=== PATIENT | female | born 1965 | race Caucasian/White ===

== ENCOUNTER 2023-10-19 12:37 | Emergency (ER) | payer OTHER, SELFPAY ==
[2023-10-19 12:47] VITALS: BP 137/78; PULSE 73; RESP 16; TEMP 36.6; O2SAT 97; BMI 25.8
--- NOTE | 2023-10-19 12:56 | DI.RAD.S_ITS ---
PROCEDURE: XR ANKLE RT MIN 3V INDICATIONS: fall/pain/injury TECHNIQUE: 3 views of the ankle were acquired. COMPARISON: None. FINDINGS: Bones: No fractures or dislocations. Ankle mortise is normally aligned. No suspicious bony lesions. Mild plantar calcaneal enthesophyte. Soft tissues: No tibiotalar joint effusion. Achilles tendon appears normal. IMPRESSION: No acute osseous abnormality. If pain persists with conservative management, consider repeat x-ray in 10-14 days or cross-sectional imaging. Dictated by: Gus Dominguez M.D. on 10/19/2023 at 13:45 Approved by: Gus Dominguez M.D. on 10/19/2023 at 13:46
--- NOTE | 2023-10-19 12:56 | DI.RAD.S_ITS ---
PROCEDURE: XR KNEE LT 3V INDICATIONS: fall/pain/injury TECHNIQUE: 3 views of the knee were acquired. COMPARISON: None. FINDINGS: Bones: No fractures or dislocations. No suspicious bony lesions. Soft tissues: Small joint effusion. No suspicious soft tissue calcifications. IMPRESSION: No acute osseous abnormality. Small knee joint effusion. If pain persists with conservative management, consider repeat x-ray in 10-14 days or cross-sectional imaging. Dictated by: Gus Dominguez M.D. on 10/19/2023 at 13:46 Approved by: Gus Dominguez M.D. on 10/19/2023 at 13:47
--- NOTE | 2023-10-19 12:56 | DI.RAD.S_ITS ---
PROCEDURE: XR KNEE RT 3V INDICATIONS: fall/pain/injury TECHNIQUE: 3 views of the knee were acquired. COMPARISON: None. FINDINGS: Bones: No fractures or dislocations. No suspicious bony lesions. Soft tissues: No joint effusion. No suspicious soft tissue calcifications. IMPRESSION: No acute osseous abnormality. If pain persists with conservative management, consider repeat x-ray in 10-14 days or cross-sectional imaging. Dictated by: Gus Dominguez M.D. on 10/19/2023 at 13:47 Approved by: Gus Dominguez M.D. on 10/19/2023 at 13:47
--- NOTE | 2023-10-19 12:59 | DI.RAD.S_ITS ---
PROCEDURE: XR HIP W PEL IF DONE LT 2V INDICATIONS: fall/pain TECHNIQUE: AP pelvis with lateral view(s) of the left hip(s). COMPARISON: None. FINDINGS: Bones: No fractures or dislocations. Pelvic ring appears intact. No suspicious bony lesions. Degenerative changes of the visualized lower lumbar spine and pubic symphysis. Soft tissues: The visualized bowel gas pattern is normal. No suspicious soft tissue calcifications. IMPRESSION: No acute bony abnormality. Dictated by: Gus Dominguez M.D. on 10/19/2023 at 13:47 Approved by: Gus Dominguez M.D. on 10/19/2023 at 13:48
--- NOTE | 2023-10-19 14:33 | ED_ITS ---
HPI - Fall General Chief Complaint: Fall Stated Complaint: Fell down stairs, knee injuries Time Seen by Provider: 10/19/23 14:33 Source: patient, RN notes reviewed and old records reviewed Mode of arrival: Wheelchair Limitations: no limitations History of Present Illness HPI Narrative: 58-year-old female history of hypertension and hypothyroid, no daily anticoagulation who presents with complaint of ground level fall. Patient has stepped off a curb she states it was little bit farther than expected when she her heel struck the ground she fell forward onto her hands and knees. Patient states she does not think she hit her head. Denies any loss of consciousness. States her neck feels a little bit sore but no midline tenderness. Denies any chest pain or shortness of breath, no nausea or vomiting, no GI or urinary symptoms no incontinence. She describes abrasions on her hands and knees. She states she has had some discomfort in her left, left knee right knee as well as her right ankle. Patient states she can move everything. It is more uncomfortable particularly on the left side. She was able to weightbear afterwards but was uncomfortable particularly in the left knee. Patient states no new numbness, tingling or weakness. Patient states was she believes her tetanus is up-to-date. Patient states she is on losartan and levothyroxine as her only daily medications. Denies any major surgeries. Allergic to penicillin. Former smoker, no active alcohol use, none recently, no recreational drugs. Patient's fall was witnessed by his friend. She is accompanied by her today. Related Data Previous Rx's Medication Instructions Recorded tramadol 50 mg tablet 50 mg PO Q6H PRN pain #7 tabs 10/19/23 Allergies Allergy/AdvReac Type Severity Reaction Status Date / Time PCN (PENICILLIN) Allergy Unknown Uncoded 10/19/23 12:55 SULFA Allergy Unknown Uncoded 10/19/23 12:55 Review of Systems Review of Systems ROS Unobtainable: All systems reviewed & are unremarkable except as noted in HPI and below Patient History Social History Smoking Status: Former smoker Smoking Status: Former smoker Substance Use Type: does not use Exam Narrative Exam Narrative: GEN: Patient appears in mild distress. HEAD: No evidence of trauma, no raccoon/Mccarthy sign. NECK: Nontender, painless range of motion, trachea midline EYES: PERRLA, EOMI ENT: External inspection normal, trachea is midline, Nares are clear, no septal hematoma, no dental or oral injury, airway is normal and with normal occlusion RESP: Chest is nontender and has symmetric movement, no ecchymosis, breath sounds are normal no crackles, wheezes or rales CVS: Heart sounds are normal, no murmur noted, No JVD. ABG/GI: Nontender, soft, normal bowel sounds, no distention, no organomegaly, pelvic rock is negative NEURO: Oriented AOx3, neuro is grossly intact, sensation and motor is normal all 4 extremities moving, cranial nerves II through XII are intact, GCS is 15 PSYCH: Normal mood and affect SKIN: Intact other than noted below, warm and dry, no crepitus and without decubitus BACK: No CVA tenderness, no vertebral tenderness, no step-off's, no crepitus EXT: Patient has abrasions bilateral palms of the hands and knees, patient's left knee has a small hematoma over the patella, patient has mild tenderness over the left knee, no other bony tenderness appreciated over the hips, right knee is nontender, bilateral ankles are nontender. Patient has full range of motion. Negative joint laxity testing bilateral knees. Normal sensation throughout bilateral lower extremities. Cap refill less than 2 seconds bilaterally. 2+ dorsalis pedis bilaterally. Initial Vital Signs Initial Vital Signs: Vital Signs Temperature 97.9 F 10/19/23 12:47 Pulse Rate 73 10/19/23 12:47 Respiratory Rate 16 10/19/23 12:47 Blood Pressure 137/78 10/19/23 12:47 Pulse Oximetry 97 10/19/23 12:47 Oxygen Delivery Method Room Air 10/19/23 12:47 Course Orders Ordered: ED Orders 10/19/23 12:56 XR ankle RT min 3V Stat XR knee LT 3V Stat XR knee RT 3V Stat 10/19/23 12:59 XR hip w pel if done LT 2V Stat Vital Signs Vital signs: Vital Signs - 8 hr 10/19/23 12:47 10/19/23 15:13 Temperature 97.9 F Pulse Rate 73 65 Respiratory Rate 16 16 Blood Pressure 137/78 133/74 Pulse Oximetry 97 99 Oxygen Delivery Method Room Air Room Air MDM - Fall Imaging Data Extremity x-ray #1: Radiologist's Impression: [address] [address] XRay Report Signed Patient: Fidelina Tavares MR#: [id number] : 1965 Acct:[id number] Age/Sex: 58 / F Date of Service: 10/19/23 Loc: ED Accession Number: [id number] Procedure: XR hip w pel if done LT 2V Ordering Provider: Yvette Hull D.O. PROCEDURE: XR HIP W PEL IF DONE LT 2V INDICATIONS: fall/pain TECHNIQUE: AP pelvis with lateral view(s) of the left hip(s). COMPARISON: None. FINDINGS: Bones: No fractures or dislocations. Pelvic ring appears intact. No suspicious bony lesions. Degenerative changes of the visualized lower lumbar spine and pubic symphysis. Soft tissues: The visualized bowel gas pattern is normal. No suspicious soft tissue calcifications. IMPRESSION: No acute bony abnormality. Dictated by: Gus Dominguez M.D. on 10/19/2023 at 13:47 Approved by: Gus Dominguez M.D. on 10/19/2023 at 13:48 Extremity x-ray #2: Radiologist's Impression: Close Hip X-Ray (Signed) AngelicaGus 10/19/23 Knee X-Ray (Signed) Angelica,Gus 10/19/23 Knee X-Ray (Signed) Angelica,Gus - 10/19/23 Ankle X-Ray (Signed) Angelica,Gus - 10/19/23 Launch?Image [address] [address] XRay Report Signed Patient: Fidelina Tavares MR#: [id number] : 1965 Acct:[id number] Age/Sex: 58 / F Date of Service: 10/19/23 Loc: ED Accession Number: [id number] Procedure: XR knee RT 3V Ordering Provider: Yvette Hull D.O. PROCEDURE: XR KNEE RT 3V INDICATIONS: fall/pain/injury TECHNIQUE: 3 views of the knee were acquired. COMPARISON: None. FINDINGS: Bones: No fractures or dislocations. No suspicious bony lesions. Soft tissues: No joint effusion. No suspicious soft tissue calcifications. IMPRESSION: No acute osseous abnormality. If pain persists with conservative management, consider repeat x-ray in 10-14 days or cross-sectional imaging. Dictated by: Gus Dominguez M.D. on 10/19/2023 at 13:47 Approved by: Gus Dominguez M.D. on 10/19/2023 at 13:47 Extremity x-ray #3: Radiologist's Impression: [address] [address] XRay Report Signed Patient: Fidelina Tavares MR#: [id number] : 1965 Acct:[id number] Age/Sex: 58 / F Date of Service: 10/19/23 Loc: ED Accession Number: [id number] Procedure: XR knee LT 3V Ordering Provider: Yvette Hull D.O. PROCEDURE: XR KNEE LT 3V INDICATIONS: fall/pain/injury TECHNIQUE: 3 views of the knee were acquired. COMPARISON: None. FINDINGS: Bones: No fractures or dislocations. No suspicious bony lesions. Soft tissues: Small joint effusion. No suspicious soft tissue calcifications. IMPRESSION: No acute osseous abnormality. Small knee joint effusion. If pain persists with conservative management, consider repeat x-ray in 10-14 days or cross-sectional imaging. Dictated by: Gus Dominguez M.D. on 10/19/2023 at 13:46 Approved by: Gus Dominguez M.D. on 10/19/2023 at 13:47 ext xray #4: Radiologist's Impression: [address] [address] XRay Report Signed Patient: Fidelina Tavares MR#: [id number] : 1965 Acct:[id number] Age/Sex: 58 / F Date of Service: 10/19/23 Loc: ED Accession Number: [id number] Procedure: XR ankle RT min 3V Ordering Provider: Yvette Hull D.O. PROCEDURE: XR ANKLE RT MIN 3V INDICATIONS: fall/pain/injury TECHNIQUE: 3 views of the ankle were acquired. COMPARISON: None. FINDINGS: Bones: No fractures or dislocations. Ankle mortise is normally aligned. No suspicious bony lesions. Mild plantar calcaneal enthesophyte. Soft tissues: No tibiotalar joint effusion. Achilles tendon appears normal. IMPRESSION: No acute osseous abnormality. If pain persists with conservative management, consider repeat x-ray in 10-14 days or cross-sectional imaging. Dictated by: Gus Dominguez M.D. on 10/19/2023 at 13:45 Approved by: Gus Dominguez M.D. on 10/19/2023 at 13:46 [facility] Narrative Medical decision making narrative: 58-year-old female with ground level fall, patient notes she stepped off a curb was little bit farther than she expected and went down on hands and knees. Majority of pain is left knee which does have little bit of swelling. She does not have any significant bony tenderness overall she does have abrasions on bilateral palms knees. No joint laxity testing on examination with good range of motion throughout bilateral lower extremities. Patient does not have any bony tenderness of the upper extremities. Left hip x-ray shows no acute bony change, degenerative changes lower lumbar spine pubic symphysis are noted. Knee x-ray of the right shows no acute change, knee x-ray of the left shows no acute osseous change small knee joint effusion. Right ankle x-ray shows no acute change. Mild plantar calcaneal enthesophyte is noted. Plan for follow up in 7-10 days if symptoms are persistent, Jerry wrap for the left knee, crutches weightbearing as tolerated. Tylenol/ibuprofen as needed for pain management. Reviewed return precautions. All questions answered. Discharge Plan Departure Patient Disposition: Home Clinical Impression: Effusion, left knee, Abrasion of both knees, Abrasion of palm, Hip pain, left Instructions: DI for Knee Pain Activity Restrictions/Additional Instructions: Follow up for recheck in 7-10 days if your symptoms are not improving for further evaluation and possibly repeat imaging. Please call to set up an appointment if needed. Your x-ray imaging shows a small joint effusion in the left knee, there are no other signs of fracture or breaks to the bones in the left hip x-ray, bilateral knee x-rays or your right ankle x-ray. There are some mild degenerative changes and some of your x-rays. Can take Tylenol up to a 1000 mg every 6 hours and/or ibuprofen up to 600 mg every 6 hours as needed for pain. If inadequate for pain you can take narcotic pain medication Tylenol and/or ibuprofen as prescribed. This medication can make you sleepy do not drive, perform hazardous activities or make any major decisions while taking it. This medication will make you constipated please take a stool softener once to twice daily until stools are soft and regular. You may weightbear as tolerated, use crutches as needed. If you are ambulating without issue you do not need to use the crutches. Keep your abrasions clean, wash once daily, pat dry, you can use a topical triple antibiotic ointment to the affected area if needed but it did not required. Please return for rapidly worsening symptoms increasing pain any signs of infection, new swelling, redness, inability to weightbear new numbness weakness or loss of sensation or other new or concerning changes. Prescriptions: New tramadol 50 mg tablet 50 mg PO Q6H PRN (Reason: pain) Qty: 7 0RF Stand Alone Forms: Patient Portal/API
[2023-10-19 15:13] VITALS: BP 133/74; PULSE 65; RESP 16; O2SAT 99
== END 2023-10-19 15:16 | disposition home or self-care (01) ==
PROVIDERS: Emergency Provider Emergency Medicine
DX: M25.462 Effusion, left knee (principal); S80.212A Abrasion, left knee, initial encounter; S80.211A Abrasion, right knee, initial encounter; S60.512A Abrasion of left hand, initial encounter; S60.511A Abrasion of right hand, initial encounter; M25.552 Pain in left hip; M54.2 Cervicalgia; W18.30XA Fall on same level, unspecified, initial encounter
CPT/HCPCS: 73502; 73562; 73610; 99282; 99283

== ENCOUNTER → 2023-11-09 17:09 | Outpatient (CLI) | payer OTHER, SELFPAY ==
--- NOTE | 2023-11-09 18:43 | DI.MRI.S_ITS ---
PROCEDURE: MR KNEE LT WO CON INDICATIONS: INJURY OF LEFT KNEE TECHNIQUE: Noncontrast sagittal PD fast spin echo and T2 fast spin echo with fat saturation, sagittal 3-D FLASH with fat saturation; coronal T1 spin echo and PD fast spin echo with fat saturation, and axial PD fast spin echo with fat saturation through the knee. COMPARISON: [facility], CR, XR KNEE RT 3V, 10/19/2023, 12:58. FINDINGS: Image quality: Excellent. Anterior cruciate ligament: Intact. Posterior cruciate ligament: Intact. Medial collateral ligament: Intact. Lateral collateral ligament: Intact. Medial meniscus: Intact. Lateral meniscus: Intact. Medial and lateral tendons: The semimembranosus tendon insertions appear intact. Visualized portions of the pes anserinus tendons appear normal. The popliteus tendon is intact. Iliotibial band appears normal. Anterior structures: Mild patella ezequiel. The quadriceps and patellar tendons appear intact. 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 Mild edema is seen at the superolateral aspect of the infrapatellar fat pad. Bones and cartilage: Mild osseous edema is seen at the anterior aspect of the superomedial patella. No focal fracture line. Findings are suspicious for an osseous contusion. No separate focus of osseous edema is seen. Medial femorotibial cartilage: No focal cartilage defect. Lateral femorotibial cartilage: No focal cartilage defect. Patellofemoral cartilage: The cartilage fissuring is seen at the lateral patellar facet. Soft tissues: Small joint effusion. Trace medial popliteal cyst. The musculature surrounding the knee is normal in bulk. Nonspecific subcutaneous edema is seen surrounding the knee. IMPRESSION: 1. Focal osseous edema at the superolateral aspect of the patella is suspicious for a small osseous contusion. No focal fracture is seen. 2. Cruciate and collateral ligaments are intact. No meniscal tear is seen. 3. Mild patella ezequiel. Mild edema is seen at the superolateral aspect of the infrapatellar fat pad, which can be seen in the setting of lateral femoral condyle-patellar tendon friction syndrome. 4. Small joint effusion. Nonspecific subcutaneous edema surrounding the knee. Approved by: Migel Nolan M.D. on 11/10/2023 at 12:04
== END ==
DX: S89.92XA Unspecified injury of left lower leg, initial encounter (principal); M22.8X2 Other disorders of patella, left knee; M25.462 Effusion, left knee; X58.XXXA Exposure to other specified factors, initial encounter
CPT/HCPCS: 73721